=== PATIENT | male | born 1990 | race Caucasian/White ===

== ENCOUNTER 2017-05-13 17:27 | Emergency (ER) | payer MEDICAID ==
[~2017-05-13] VITALS: Ht 165.1 cm; Wt 84.1 kg
[2017-05-13 21:22] LABS: GLUCOSE, URINE (UA) NEGATIVE (NEGATIVE); KETONES,URINE NEGATIVE (NEGATIVE); LEUKOCYTE ESTERASE ,URINE MODERATE (NEGATIVE); OCCULT BLOOD,URINE NEGATIVE (NEGATIVE); PH,URINE 6.5 (5.0-8.0); PROTEIN,URINE NEGATIVE (NEGATIVE)
[2017-05-13 21:29] LABS: ADD UA MICROSCOPIC YES; APPEARANCE,URINE HAZY (CLEAR); RBC,URINE None Seen /HPF (0-2)
[2017-05-13] MEDS ORDERED: LEVOFLOXACIN 500 MG TABLET PO ONE (22:00)
[2017-05-13] MEDS ORDERED: CefTRIAXone SODIUM 1 GM/VIAL IM ONE (22:00)
[2017-05-13] MEDS ORDERED: IBUPROFEN 800 MG TABLET PO ONE (22:00)
[2017-05-13] MEDS ORDERED: LIDOCAINE HCL/PF 1% 2 ML VIAL IM ONE (22:00)
[2017-05-13 22:21] VITALS: BP 132/87
== END 2017-05-13 22:36 | disposition home or self-care (01) ==
LOC: EMS 17:30
DX: N45.1 Epididymitis (principal); N39.0 Urinary tract infection, site not specified
CPT/HCPCS: 76870; 81001; 87077; 87086; 87186; 96372; 99285; J0696; J3490

== ENCOUNTER 2022-03-27 22:53 | Emergency (ER) | payer MEDICAID, OTHER ==
[~2022-03-27] VITALS: Ht 165.1 cm; Wt 81.8 kg
[2022-03-28] MEDS ORDERED: ACETAMINOPHEN 500 MG TABLET PO ONE (00:30)
[2022-03-28 03:45] LABS: COVID AG,FIA SOURCE NASOPHARYNGEAL
[2022-03-28 04:00] VITALS: BP 120/65
[2022-03-28 04:09] LABS: BASOPHILS % (AUTO) 0.5 % (0.0-2.0); EOSINOPHILS % (AUTO) 1.8 % (1.0-6.0); HEMATOCRIT 44.3 % (41-53); HEMOGLOBIN 14.8 g/dL (13.5-17.5); LYMPHOCYTES # (AUTO) 2.5 K/uL (1.0-4.8); LYMPHOCYTES % (AUTO) 31.3 % (22.0-44.0); MEAN CORPUSCULAR HEMOGLOBIN 30.9 pg (26.0-34.0); MEAN CORPUSCULAR HGB CONC 33.5 G/dL (31.0-37.0); MEAN CORPUSCULAR VOLUME 92 fL (80-100); MONOCYTES # (AUTO) 0.6 K/uL (0.1-1.0); MONOCYTES % (AUTO) 7.4 % (2.0-9.0); NEUTROPHILS # (AUTO) 4.8 K/uL (1.8-7.7); PLATELET COUNT (AUTO) 231 K/uL (150-450); RED BLOOD CELL COUNT(AUTO) 4.79 MIL/uL (4.50-5.90)
[2022-03-28 04:17] LABS: ANION GAP 3 mmol/L (8-16); CALCIUM, TOTAL 8.7 mg/dL (8.8-10.5); CARBON DIOXIDE 31 mmol/L (22-29); CHLORIDE 103 mmol/L (98-107); CREATININE 1.03 mg/dL (0.60-1.30); GLUCOSE,RANDOM 108 mg/dL (70-110); POTASSIUM 3.7 mmol/L (3.5-5.1); SODIUM SERUM 137 mmol/L (136-145); UREA NITROGEN, BLOOD 9 mg/dL (7-18)
[2022-03-28 04:18] LABS: GLOMERULAR FILTR. RATE CALC > 60 mL/min (>60)
[2022-03-28 04:22] LABS: PROTHROMBIN TIME 10.9 SEC (9.4-11.6)
[2022-03-28 04:23] LABS: ALANINE AMINOTRANSFERASE 28 U/L (12-78); ALBUMIN 4.5 g/dL (3.4-5.0); ALKALINE PHOSPHATASE 59 U/L (46-116); ASPARTATE AMINOTRANSFERASE 17 U/L (15-37); BILIRUBIN,TOTAL 0.7 mg/dL (0.1-1.0); TOTAL PROTEIN, SERUM 7.5 g/dL (6.4-8.2)
== END 2022-03-28 04:45 | disposition short-term general hospital (02) ==
LOC: EMS 22:55
DX: S06.300A Unspecified focal traumatic brain injury without loss of consciousness, initial encounter (principal); Z20.822 Contact with and (suspected) exposure to COVID-19; V89.2XXA Person injured in unspecified motor-vehicle accident, traffic, initial encounter; Y93.89 Activity, other specified; Y92.89 Other specified places as the place of occurrence of the external cause; Y99.8 Other external cause status
CPT/HCPCS: 70450; 72125; 80053; 85025; 85610; 85730; 99285